=== PATIENT | female | born 1965 | race Two or more races ===

== ENCOUNTER 2017-09-23 14:19 | Emergency (ER) | payer BC ==
[2017-09-23 14:38] VITALS: BP 132/95
--- NOTE | 2017-09-23 14:59 | UC ---
Back Pain HPI - HPI Summary HPI Summary: c/o L lower back pain for 2 days, no fall, no urinary problems, no numbness. 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 Severity Initially: Mild Severity Currently: Moderate Pain Intensity: 8 Back Pain: Is Discrete @ - L low back Character: Throbbing, Stiffness Aggravating Factor(s): Movement Alleviating Factor(s): Rest, Heat Associated Signs And Symptoms: Positive: Negative - Risk Factors Cauda Equina Risk Factors: Negative - Allergies/Home Medications Allergies/Adverse Reactions: Allergies Allergy/AdvReac Type Severity Reaction Status Date / Time No Known Allergies Allergy Verified 09/23/17 14:38 Home Medications: Home Medications traZODone TAB* [Desyrel TAB*] 1 tab PO DAILY 09/23/17 [History Confirmed ] PMH/Surg Hx/FS Hx/Imm Hx Previously Healthy: Yes - Surgical History Surgical History: Yes Surgery Procedure, Year, and Place: BREAST BIOPSY - Family History Known Family History: Positive: None - Social History Occupation: Employed Part-time Lives: With Family Alcohol Use: Rare Substance Use Type: None Smoking Status (MU): Former Smoker - Immunization History Most Recent Influenza Vaccination: never Most Recent Tetanus Shot: unknown Review of Systems Constitutional: Negative Respiratory: Negative Cardiovascular: Negative Musculoskeletal: Decreased ROM - pain on full flexion Neurological: Negative Psychological: Negative All Other Systems Reviewed And Are Negative: Yes Physical Exam Triage Information Reviewed: Yes Appearance: Well-Appearing, No Pain Distress, Well-Nourished Vital Signs: Initial Vital Signs Temp 98.4 F 09/23/17 14:34 Pulse 84 09/23/17 14:34 Resp 12 09/23/17 14:34 BP 132/95 09/23/17 14:34 Pulse Ox 98 09/23/17 14:34 Vital Signs Reviewed: Yes Neck exam: Normal Respiratory Exam: Normal Cardiovascular Exam: Normal Musculoskeletal: Positive: Strength Intact, ROM Limited @ - low back d/t pain Neurological Exam: Normal Psychological Exam: Normal Skin Exam: Normal Skin: Negative: rashes Back Pain Course/Dx - Course Course Of Treatment: iStop Reference #: [id number] - Differential Dx/Diagnosis Differential Diagnosis/HQI/PQRI: Cauda Equina Syndrome, Herniated Disc, Strain, Sprain Provider Diagnoses: low back strain Discharge - Sign-Out/Discharge Documenting (check all that apply): Discharge/Admit/Transfer - Discharge Plan Condition: Stable Disposition: HOME Prescriptions: Carisoprodol TAB* [Soma TAB*] 350 mg PO Q6H PRN #12 tab MDD 4 PRN Reason: Spasms - Back Patient Education Materials: Low Back Strain (ED) Referrals: Bobo Petersen, [facility] [Primary Care Provider] - 3 Days (if no better) Additional Instructions: use ibuprofen 600mg every 6 hours with food use muscle relaxer as prescribed apply warm moist heat to area of back pain 4-6 times a day - Billing Disposition and Condition Condition: STABLE Disposition: Home
== END 2017-09-23 15:26 | disposition home or self-care (01) ==
LOC: UCEAST 14:19
DX: S39.012A Strain of muscle, fascia and tendon of lower back, initial encounter (principal); X50.9XXA Other and unspecified overexertion or strenuous movements or postures, initial encounter; Y93.89 Activity, other specified; Y92.210 Daycare center as the place of occurrence of the external cause; Y99.0 Civilian activity done for income or pay; Z87.891 Personal history of nicotine dependence
CPT/HCPCS: 99212; G0463

== ENCOUNTER 2018-09-26 09:02 | Emergency (ER) | payer BC ==
--- NOTE | 2018-09-26 10:24 | UC ---
Respiratory Complaint HPI - HPI Summary HPI Summary: 52-year-old female presents with 5 day history of nasal congestion, mild sinus pressure, sore throat, and a nonproductive cough. States over the last 2-3 days her symptoms have progressively worsened and last night she started having fever, chills, and sharp right sided chest pain with deep breath and cough. States she has been taking Mucinex D, using fluticasone nasal spray, and an albuterol inhaler that she was prescribed the last time she had bronchitis with some improvement in her symptoms. Patient states she and her are preparing to move to [place] in one week. Denies ear pain, dysphagia, palpitations, weakness, dizziness, diaphoresis, shortness of breath, abdominal pain, nausea, or vomiting. - History of Current Complaint Chief Complaint: UCRespiratory Stated Complaint: CONGESTION HURTS TO BREATH Time Seen by Provider: 09/26/18 10:20 Hx Obtained From: Patient Hx Last Menstrual Period: 6 months ago Pain Intensity: 8 - Allergies/Home Medications Allergies/Adverse Reactions: Allergies Allergy/AdvReac Type Severity Reaction Status Date / Time No Known Allergies Allergy Verified 09/26/18 09:13 PMH/Surg Hx/FS Hx/Imm Hx Previously Healthy: Yes - Denies siginificant PMH - Surgical History Surgical History: Yes Surgery Procedure, Year, and Place: BREAST BIOPSY LEFT-FIBROADENOMA. APPENDECTOMY - Family History Known Family History: Positive: Non-Contributory - Social History Occupation: Employed Full-time Lives: With Family Alcohol Use: Weekly Substance Use Type: None Smoking Status (MU): Former Smoker - Immunization History Most Recent Influenza Vaccination: never Most Recent Tetanus Shot: unknown Review of Systems All Other Systems Reviewed And Are Negative: Yes Constitutional: Positive: Fever, Chills Skin: Positive: Negative Eyes: Negative: Drainage, Eye Redness ENT: Positive: Sore Throat, Nasal Discharge, Sinus Congestion, Sinus Pain/ Tenderness Respiratory: Positive: Cough. Negative: Shortness Of Breath Cardiovascular: Negative: Palpitations, Chest Pain Gastrointestinal: Positive: Negative Genitourinary: Positive: Negative Musculoskeletal: Positive: Negative Neurological: Positive: Negative Is Patient Immunocompromised?: No Physical Exam - Summary Physical Exam Summary: GENERAL APPEARANCE: Well developed, well nourished, alert and cooperative, and appears to be in no acute distress. EYES: Conjunctiva clear. No drainage. EARS: External auditory canals and tympanic membranes clear, hearing grossly intact. NOSE: Moderate nasal congestion. No nasal discharge. THROAT: Pharyngeal cobblestoning. No tonsilar inflammation, swelling, exudate, or lesions. Uvula midline. NECK: Neck supple, non-tender without lymphadenopathy. CARDIAC: Normal S1 and S2. No S3, S4 or murmurs. Rhythm is regular. There is no peripheral edema, cyanosis or pallor. Extremities are warm and well perfused. Capillary refill is less than 2 seconds. Peripheral pulses intact. LUNGS: Clear to auscultation without rales, rhonchi, wheezing or diminished breath sounds. ABDOMEN: Positive bowel sounds. Soft, nondistended, nontender. No guarding or rebound. No masses or hepatosplenomegally. MUSKULOSKELETAL: ROM intact to all extremities. No joint erythema or tenderness. Normal muscular development. Normal gait. SKIN: Skin normal color, texture and turgor with no lesions or eruptions. Triage Information Reviewed: Yes Vital Signs: Initial Vital Signs Temp 98.6 F 09/26/18 09:09 Pulse 105 09/26/18 09:09 Resp 18 09/26/18 09:09 BP 111/76 09/26/18 09:09 Pulse Ox 98 09/26/18 09:09 Vital Signs Reviewed: Yes Diagnostics - Radiology No standard instances Radiology Interpretation Completed By: Radiologist Summary of Radiographic Findings: Order Information: CHEST PA LAT 2 [facility]. Accession Number: [id number]. CPT: 95142. HISTORY: fever, cough, right-sided CP. COMPARISONS: July 14, 2015. VIEWS: 4: Frontal dual-energy and lateral views of the chest. FINDINGS: CARDIOMEDIASTINAL SILHOUETTE: The cardiomediastinal silhouette is normal. STEVE: The steve are normal. PLEURA: The costophrenic angles are sharp. No pleural abnormalities are noted. LUNG PARENCHYMA: The lungs are clear. ABDOMEN: The upper abdomen is clear. There is no subphrenic gas. BONES AND SOFT TISSUES: No bone or soft tissue abnormalities are noted. OTHER: None. IMPRESSION: NO ACTIVE CARDIOPULMONARY DISEASE. Respiratory Course/Dx - Course Course Of Treatment: 52-year-old female presents with 5 day history of nasal congestion, mild sinus pressure, sore throat, and a nonproductive cough. States over the last 2-3 days her symptoms have progressively worsened and last night she started having fever, chills, and sharp right sided chest pain with deep breath and cough. States she has been taking Mucinex D, using fluticasone nasal spray, and an albuterol inhaler that she was prescribed the last time she had bronchitis with some improvement in her symptoms. Patient states she and her are preparing to move to [facility] in one week. Denies ear pain, dysphagia, palpitations, weakness, dizziness, diaphoresis, shortness of breath, abdominal pain, nausea, or vomiting. Afebrile. Vital signs stable. Patient had moderate nasal congestion, pharyngeal cobblestoning, no tonsillar swelling or exudate, no cervical lymphadenopathy, clear bilateral breath sounds, and otherwise unremarkable exam. Chest x-ray showed no acute cardiopulmonary pathology. Reviewed results with the patient and discussed that her symptoms are likely from an upper respiratory infection. I did discuss with the patient that this is likely viral in origin however I cannot fully rule out a bacterial infection at this time. We discussed the risks and benefits of treating with an antibiotic and considering worsening of her symptoms and the fact that she is going to be going out of country soon she is electing to start antibiotics at this time. Will treat with a course of azithromycin as well as provide her with symptomatic treatment including continued use of [id number] Mucinex D , fluticasone nasal spray, [id number] analgesics, and I will provide her with a prescription for Tessalon Perles 1 capsule every hours as needed for cough. Is to follow-up with her primary care provider in 3-5 days if symptoms are not improving. Anticipatory guidance and warning symptoms were reviewed with the patient. Verbalizes understanding and agrees with plan of care. - Differential Dx/Diagnosis Differential Diagnosis/HQI/PQRI: Bronchitis, Lower Resp Infection, Other - URI Provider Diagnosis: Upper respiratory infection with cough and congestion Discharge - Sign-Out/Discharge Documenting (check all that apply): Patient Departure All imaging exams completed and their final reports reviewed: Yes - Discharge Plan Condition: Stable Disposition: HOME Prescriptions: Azithromyxin VINNY (NF) [Z-Vinny (Zithromax) 250 mg tabs #6] 2 tab PO .TODAY, THEN 1 DAILY #6 tab Benzonatate CAP* [Tessalon 100 MG CAP*] 100 mg PO TID PRN #21 cap PRN Reason: Cough Patient Education Materials: Upper Respiratory Infection (ED) Forms: *Work Release Referrals: Bobo Petersen, [facility] [Primary Care Provider] - 3 Days Additional Instructions: The chest x-ray was performed in the clinic today did not show any evidence of pneumonia. Your history and exam are consistent with an upper respiratory infection with cough. With the worsening symptoms and the fact that you are leaving to go out of the country we will treat you with a course of antibiotics. Take a Zithromax 2 tabs today then 1 tab a day for the next 4 days. Use a saline rinse kit such as Neti Pot or NeilMed at least twice a day to help thin secretions and promote drainage of the sinuses. Continue to use the fluticasone (Flonase) nasal spray 2 sprays each nostril once daily. Continue to use the Mucinex D according to directions to help with the congestion. Continue to use your albuterol inhaler 2 puffs every 4-6 hours as needed for any shortness of breath or wheezing. Take Tessalon Perles 1 cap every 8 hours as needed for cough. Take over the counter acetaminophen (Tylenol) or ibuprofen (Advil, Motrin) according to directions as needed for pain or fever. Use salt water gargles several times a day if you have a sore throat. You may also use Chloraseptic spray or Cepacol lonzenges according to directions which contain a numbing medication and can provide some temporary relief from your sore throat. Follow up with your primary care provider in 3-5 days if symptoms persist. Seek immediate medical attention in the emergency room if you have fever greater than 100.5 F despite taking acetaminophen or ibuprofen, have chest pain , difficulty breathing, are unable to swallow, or have any worsening of symptoms. - Billing Disposition and Condition Condition: STABLE Disposition: Home
[2018-09-26 11:32] VITALS: BP 118/84
== END 2018-09-26 11:30 | disposition home or self-care (01) ==
LOC: UCEAST 09:02
DX: J06.9 Acute upper respiratory infection, unspecified (principal); Z87.891 Personal history of nicotine dependence
CPT/HCPCS: 71046; 99212; G0463